=== PATIENT | male | born 1980 | race Caucasian/White ===

== ENCOUNTER 2023-03-26 14:09 | Outpatient (CLI) | payer MEDICAID ==
--- NOTE | 2023-03-26 15:09 | XRAY Report ---
PROCEDURE: Finger(s) RT INDICATIONS: CONTUSION OF RIGHT THUMB TECHNIQUE: AP hand, 2 views of the first finger(s) acquired. COMPARISON: None. FINDINGS: Bones: No fractures or dislocations. Osseous irregularity of the fourth distal tuft which may repres ent sequela of prior trauma. No suspicious bony lesions. Soft tissues: No suspicious soft tissue calcifications or masses. IMPRESSION: No acute bony abnormality. Reviewed by: Jackson Sinclair MD on 03/26/2023 3:07 PM [facility] Approved by: Jackson Sinclair MD on 03/26/2023 3:07 PM PST Station ID: [id number]
== END 2023-03-26 23:59 | disposition home or self-care (01) ==
LOC: DI.S 14:09
PROVIDERS: ATTEND Physician Assistant Medical
DX: S60.011A Contusion of right thumb without damage to nail, initial encounter (principal)

== ENCOUNTER 2023-12-30 14:17 | Emergency (ER) | payer MEDICAID ==
[2023-12-30 14:49] LABS: BASOPHILS % (AUTO) 0.8 %; EOSINOPHILS # (AUTO) 0.3 10^3/uL (0.0-0.7); HCT - HEMATOCRIT 42.5 % (42.0-52.0); HGB - HEMOGLOBIN 14.5 g/dL (14.0-18.0); LYMPHOCYTES # (AUTO) 1.5 10^3/uL (1.5-3.5); LYMPHOCYTES % (AUTO) 30.4 %; MEAN CORPUSCULAR HEMOGLOBIN 32.7 pg (27.0-31.0); MEAN CORPUSCULAR HGB CONC 34.1 g/dL (32.0-36.0); MEAN CORPUSCULAR VOLUME 95.7 fL (80.0-94.0); MEAN PLATELET VOLUME 9.5 fL (7.4-11.4); MONOCYTES # (AUTO) 0.5 10^3/uL (0.0-1.0); MONOCYTES % (AUTO) 10.7 %; NEUTROPHILS # (AUTO) 2.6 10^3/uL (1.5-6.6); NEUTROPHILS % (AUTO) 51.9 %; PLT - PLATELET COUNT 227 10^3/uL (130-450); RED BLOOD COUNT 4.44 10^6/uL (4.70-6.10); RED CELL DISTRIBUTION WIDTH 13.1 % (12.0-15.0)
[2023-12-30 15:11] LABS: ALBUMIN 4.1 g/dL (3.2-5.5); ALBUMIN/GLOBULIN RATIO 1.1 (1.0-2.2); BILIRUBIN,TOTAL 0.6 mg/dL (0.2-1.0); CALCIUM 9.2 mg/dL (8.5-10.3); POTASSIUM 4.1 mmol/L (3.5-4.5); TOTAL PROTEIN 7.8 g/dL (6.4-8.9)
[2023-12-30 15:26] LABS: BILIRUBIN,URINE NEGATIVE (NEGATIVE); GLUCOSE, URINE (UA) NEGATIVE (NEGATIVE); KETONES,URINE (UA) NEGATIVE (NEGATIVE); LEUKOCYTE ESTERASE, URINE NEGATIVE (NEGATIVE); NITRITE,URINE NEGATIVE (NEGATIVE); OCCULT BLOOD,URINE NEGATIVE (NEGATIVE); PH,URINE 5.5 PH (5.0-7.5); PROTEIN,URINE NEGATIVE (NEGATIVE); UROBILINOGEN,URINE 0.2 (NORMAL) E.U./dL (NORMAL)
[2023-12-30 15:27] LABS: CLARITY,URINE CLEAR (CLEAR)
--- NOTE | 2023-12-30 15:42 | ED Physician Documentation ---
PD HPI ABD PAIN - Stated complaint Stated Complaint: /L SIDE PAIN - Chief complaint Chief Complaint: Abd Pain - History obtained from History obtained from: Patient - Additional information Additional information: 43-year-old gentleman who is generally healthy with the exception of hearing loss. For the last 2 weeks or so he has had generally worsening left lower quadrant pain that he feels mostly in the testicles over the last 5 days or so. He has tried some Tylenol with modest relief. This is nothing he is ever had before. He denies urinary complaints or hematuria. No concern for STDs, has not been sexually active in about a year. Denies changes in bowel movements. No rashes or lesions in the area. No fevers or chills. PD PAST MEDICAL HISTORY - Past Medical History Past Medical History: Yes Musculoskeletal: Osteoarthritis Other Past Medical History: POARCH - Past Surgical History Past Surgical History: No - Present Medications Home Medications: Ambulatory Orders Medication Instructions Recorded Confirmed Cyclobenzaprine [Flexeril] 10 mg PO TID PRN #20 tablet 12/30/23 - Allergies Allergies/Adverse Reactions: Allergies Allergy/AdvReac Type Severity Reaction Status Date / Time No Known Drug Allergies Allergy Verified 12/30/23 14:30 - Social History Does the pt smoke?: No Smoking Status: Never smoker Does the pt drink ETOH?: Yes Does the pt have substance abuse?: No - Immunizations Immunizations are current?: Yes PD ED PE NORMAL - Vitals Vital signs reviewed: Yes - General General: Alert and oriented X 3, No acute distress - Abdomen Abdomen: Normal bowel sounds, Soft, Other (He is tender in the left lower quadrant without surgical signs) - Male Male : Other (Left testicle is mildly tender with normal lie. Normal cremaster reflex. No hernia mass.) - Back Back: No CVA TTP, No spinal TTP - Derm Derm: Normal color, No rash - Extremities Extremities: No edema, No calf tenderness / cord Results - Vitals Vitals: Vital Signs - 24 hr 12/30/23 14:30 Temperature 36.7 C Heart Rate 69 Respiratory 16 Rate Blood Pressure 121/88 H O2 Saturation 99 Oxygen O2 Source Room air - Labs Labs: Laboratory Tests 12/30/23 12/30/23 12/30/23 14:45 14:45 15:16 WBC 5.0 RBC 4.44 L Hgb 14.5 Hct 42.5 MCV 95.7 H MCH 32.7 H MCHC 34.1 RDW 13.1 Plt Count 227 MPV 9.5 Neut # (Auto) 2.6 Lymph # (Auto) 1.5 [place] # (Auto) 0.5 Eos # (Auto) 0.3 Baso # (Auto) 0.0 Absolute Nucleated RBC 0.00 Nucleated RBC % 0.0 Sodium 138 Potassium 4.1 Chloride 103 Carbon Dioxide 29 Anion Gap 6.0 BUN 10 Creatinine 1.0 Estimated GFR (MDRD) 82 L Glucose 92 Calcium 9.2 Total Bilirubin 0.6 AST 18 ALT 17 Alkaline Phosphatase 38 L Total Protein 7.8 Albumin 4.1 Globulin 3.7 Albumin/Globulin Ratio 1.1 Lipase 11 Urine Color YELLOW Urine Clarity CLEAR Urine pH 5.5 Ur Specific [place] 1.025 Urine Protein NEGATIVE Urine Glucose (UA) NEGATIVE Urine Ketones NEGATIVE Urine Occult Blood NEGATIVE Urine Nitrite NEGATIVE Urine Bilirubin NEGATIVE Urine Urobilinogen 0.2 (NORMAL) Ur Leukocyte Esterase NEGATIVE Ur Microscopic Review NOT INDICATED Urine Culture Comments NOT INDICATED - Rads (name of study) testicular sono neg per rdms Relevant Findings:: Prelim report reviewed CT A/P Relevant Findings:: Final report received, EMP independent interpretation of test PD Medical Decision Making - ED course ED course: He presents with left lower quadrant/left testicular pain. Unclear on history and physical which 1 is the primary issue. Differential would include epididymitis or other testicular etiology versus an intra-abdominal etiology such as diverticulitis. I am not particularly worried about torsion given the timeframe. Initial workup from triage demonstrates an unremarkable CBC, CMP, and urinalysis is also normal without hematuria or signs of infection. 43-year-old gentleman with left lower quadrant, left back pain, and left testicular pain. Workup demonstrates unremarkable CBC, CMP, urinalyses, per the RDMS the testicular ultrasound was normal/negative and the CT of the abdomen pelvis was negative with the exception of incidental gallstones which were discussed with him. We will trial muscle relaxer pending follow-up. Departure - Departure Disposition: 01 Home, Self Care Clinical Impression: Back pain Qualifiers: Back pain location: low back pain Chronicity: acute Back pain laterality: left Sciatica presence: unspecified whether sciatica present Qualified Code(s): M54.50 - Low back pain, unspecified Abdominal pain Qualifiers: Abdominal location: left lower quadrant Qualified Code(s): R10.32 - Left lower quadrant pain Testicular pain Qualifiers: Laterality: left Qualified Code(s): N50.812 - Left testicular pain Condition: Good Record reviewed to determine appropriate education?: Yes Instructions: ED Abdominal Pain Unkn Cause Male Prescriptions: Cyclobenzaprine [Flexeril] 10 mg PO TID PRN #20 tablet PRN Reason: Spasms Comments: As discussed, the cause of your pain is not exactly clear. CT imaging of the abdomen pelvis and ultrasound of your testicles was normal with the exception of the gallstones as we discussed and that would not cause the left lower abdominal pain you are experiencing. Lab work and urinalyses were normal. By process of elimination this may just be regular role of musculoskeletal back pain and we will try the muscle relaxer. Call your doctor to arrange a follow- up appointment, make the next available appointment. In the interim, return anytime if worse or if new symptoms develop. I sent the prescription electronically to [facility] in [place]. Forms: PCP List
[2023-12-30] MEDS ORDERED: iohexoL-300 100 ML VIAL ONE (15:48)
[2023-12-30] MEDS: HYDROcod/ACETAM 5/325 MG TABLET PO STA (15:49)
--- NOTE | 2023-12-30 17:22 | CT Report ---
PROCEDURE: Abdomen/Pelvis W INDICATIONS: IV only, LLQ pain CONTRAST: omni, 100 TECHNIQUE: After the administration of intravenous contrast, a CT scan of the abdomen and pelvis was performed. Images were recorded and evaluated at appropriate window settings. Reformats: coronal and sagittal. F or radiation dose reduction, the following was used: automated exposure control, adjustment of mA and /or kV according to patient size. COMPARISON: None. FINDINGS: Image quality: Diagnostic. Lower chest: Heart base is unremarkable. No basilar effusion or consolidation. No hiatal hernia. Liver: No solid mass. Gallbladder: Tiny gallstones/sludge. No wall thickening or pericholecystic fluid. Biliary tree: No intrahepatic or extrahepatic dilation, accounting for age. Spleen: No splenomegaly. Pancreas: No pancreatic ductal dilation. Adrenals: No adrenal nodule. Kidneys and ureters: No hydronephrosis. No renal cystic lesion which requires follow up. No solid mas s. Stomach, bowel and peritoneum: No hiatal hernia. Stomach is decompressed, limiting evaluation, but ap pears grossly normal. Small and large bowel is normal in caliber, without obstruction. Normal appendi x (). No colonic diverticuli. No pneumatosis, pneumoperitoneum or portal venous gas. Lymph nodes: No central or retroperitoneal adenopathy. Vessels: No infrarenal aortic aneurysm. Patent portal vein. PELVIS Reproductive organs: Unremarkable. Bladder: No abnormal wall thickening, accounting for underdistention. Pelvic lymph nodes: No pelvic adenopathy by size criteria. Bones: No aggressive osseous abnormality. No acute fractures. Moderate degenerative changes at L5-S1. Other: Tiny fat-containing umbilical hernia. No inguinal hernia. PRESSION: 1.No acute pathology in the abdomen or pelvis. Specifically, no colonic diverticuli and normal append ix. 2.Tiny gallstones/sludge with no acute cholecystitis. Reviewed by: Jackson Sinclair MD on 12/30/2023 4:21 PM [facility] Approved by: Jackson Sinclair MD on 12/30/2023 4:21 PM [facility] Station ID: [id number]
[2023-12-30 17:40] VITALS: BP 115/81; O2SAT 100
--- NOTE | 2023-12-30 18:10 | Ultrasound Report ---
PROCEDURE: Testicle w/Doppler INDICATIONS: L testicle pain TECHNIQUE: Real-time scanning was performed of the scrotum and testicles, with image documentation. Color and p ulse Doppler interrogation was performed of both testicles. COMPARISON: None. FINDINGS: Right: Testicle is normal in size at 3.6 x 2.6 x 3.4 cm, and homogenous in echotexture. Epididymis is normal in overall size and morphology. Tiny hydrocele. No varicoceles. Overlying scrotal skin is normal in thickness. Left: Testicle is normal in size at 3.5 x 2.2 x 3.1 cm, and homogeneous in echotexture. Epididymis is normal in overall size and morphology. No hydrocele. No varicoceles. Overlying scrotal skin is n ormal in thickness. Doppler: Color and pulse Doppler demonstrate normal and symmetric arterial flow in both testicles. IMPRESSION: No evidence of infection or torsion. Reviewed by: Jackson Sinclair MD on 12/30/2023 5:09 PM [facility] Approved by: Jackson Sinclair MD on 12/30/2023 5:09 PM [facility] Station ID: [id number]
[2023-12-30] MEDS: iohexoL-300 100 ML VIAL IVP ONE (18:20)
== END 2023-12-30 17:43 | disposition home or self-care (01) ==
LOC: ED 14:17
DX: M54.50 Low back pain, unspecified (principal); R10.32 Left lower quadrant pain; N50.812 Left testicular pain
CPT/HCPCS: 36415; 74177; 76870; 80053; 81003; 83690; 85025; 93975; 99284; A9270; Q9967; 81001; 87086